=== PATIENT | male | born 1950 | race Caucasian/White ===

== ENCOUNTER 2018-01-22 06:13 | Emergency (ER) | payer OTHER, MEDICARE ==
[2018-01-22] MEDS ORDERED: ONDANSETRON 4 MG/2 ML VIAL IVP ONE ×2 (06:18→07:57)
[2018-01-22] MEDS ORDERED: NS 1,000 ML IV ONE (06:18)
--- NOTE | 2018-01-22 06:38 | EDPHY ---
H & P Smoking Status: Never smoked Time Seen by Provider: 01/22/18 06:18 HPI/ROS: CHIEF COMPLAINT: Nausea, vomiting, diarrhea HISTORY OF PRESENT ILLNESS: Patient states he had an upset stomach that started last night just before midnight. He was still up watching the [employer] football game on . He states that right around midnight he started vomiting and has vomited just about every hour since that time. He has also had some diarrhea. He states he still feels ill with nausea but denies any abdominal pain. He has had no known sick contacts. He did not take his medications last night secondary to nausea or this morning. Approximately 2 weeks ago he said he had upper respiratory infection with cough which is worse at night. It lasted about a week and has gotten better. He denies fever at any time. He did say that on Wednesday and he felt kind of "blah" but was better by Wednesday morning. Patient denies shortness of breath or chest pain. No dysuria. No blood in stool or vomit. REVIEW OF SYSTEMS: Constitutional: No fever, no chills. Eyes: No discharge. ENT: No sore throat. Cardiovascular: No chest pain, no palpitations. Respiratory: No cough, no shortness of breath. Gastrointestinal: No abdominal pain, nausea, vomiting, diarrhea as per HPI. Genitourinary: No dysuria. Musculoskeletal: No back pain. Skin: No rashes. Neurological: No headache. General Appearance: Alert, no distress. Eyes: Pupils equal and round no pallor or injection. ENT, Mouth: Mucous membranes moist. Respiratory: There are no retractions, lungs are clear to auscultation. Cardiovascular: Regular rate and rhythm. Tachycardic (117), hypertensive. Gastrointestinal: Abdomen is soft and nontender, no masses, bowel sounds normal. Neurological: Awake and alert, cranial nerves intact, no focal deficits. Skin: Warm and dry, no rashes. Musculoskeletal: Neck is supple nontender. Extremities are symmetrical, full range of motion, no edema. Psychiatric: Patient is oriented X 3, there is no agitation. Medical/surgical history: Type 2 diabetes, high cholesterol, hypertension, colon cancer with bowel resection 2016. Foot surgery. Social history: Nonsmoker. Had 4 beers night at a wedding but this is unusual for him. No drugs. Dr. Hernadez is PCP. (Rayna Guzman) Constitutional: Initial Vital Signs Temperature (C) 36.3 C 01/22/18 06:16 Heart Rate 117 H 01/22/18 06:16 Respiratory Rate 18 01/22/18 06:16 Blood Pressure 200/125 H 01/22/18 06:16 O2 Sat (%) 80 L 01/22/18 06:16 O2 Delivery Mode Nasal Cannula O2 (L/minute) 3 Allergies/Adverse Reactions: No Known Allergies Allergy (Verified 01/22/18 06:15) Home Medications: Medication Instructions Recorded RX: Ascorbic Acid [Vitamin C] 100 mg PO DAILY 12/03/14 RX: Cholecalciferol Vit D3 1,000 units PO DAILY 12/03/14 [Vitamin D3 (*)] RX: glipiZIDE [Glipizide] 5 mg PO BID 12/03/14 RX: Pioglitazone HCl [Actos 15mg 15 mg PO DAILY 01/30/16 (*)] RX: metFORMIN HCL [Metformin HCl 1,000 mg PO BID 02/10/16 ER] Prazosin HCl 01/22/18 RX: Aspirin 01/22/18 RX: Atorvastatin Calcium [Lipitor 01/22/18 10 mg (*)] RX: Metoprolol Succinate [Toprol 01/22/18 Xl] Medical Decision Making - Diagnostics Imaging Results: Imaging Impressions Chest X-Ray 01/22/18 06:46 Impression: Mild central bronchitis; otherwise negative chest.. ED Course/Re-evaluation: 6:45 a.m. reposition patient, nasal cannula applied, O2 sat to low mid 90s. ( Rayna Guzman) Differential Diagnosis: Differential diagnosis includes but is not limited to gastroenteritis, diabetic ketoacidosis, pneumonia. Initial evaluation performed by myself and patient discussed in detail with Dr. Griffin at the time of my departure from the emergency department. Plan is for hydration, antiemetics, diagnostics to include laboratory evaluation and chest x-ray. Will plan to give patient his normal medications as tolerated. Further evaluation and workup per Dr. Griffin ( Rayna Guzman) Other Provider: [address] Guzman pending CXR and laboratory results and improvements in symptoms. 0704 CBC noted for elevated wbc with left shift. Will check influenza. Influenza is negative. Patient's oxygen saturations dropped to 86% on room air. Chest x-ray shows no focal infiltrates per my interpretation. Troponin is 0.04. ECG shows a bifascicular block which is new compared to an ECG from 2016. 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 Plan will be to transfer the patient to [facility] for further evaluation. Patient's nausea is improved. He has not had any chest pain or shortness of breath during his course here. Patient his hypoxemic and tachycardic. D-dimer is negative here. Case discussed with Dr. Fritz, hospitalist at [facility]. She will accept the patient transfer. She has reviewed the patient records at [facility] in confirm that he has had a bifascicular block is air in the past. This reduces the likelihood of this being a cardiac cause for his hypoxia. Patient is feeling better but continues to have poor saturations on room air. Will transfer the patient over to the [facility] observation unit for further evaluation. (Braden Griffin) - Data Points Laboratory Results: 01/22/18 01/22/18 01/22/18 07:46 06:39 06:39 POC Sodium 141 mEq/L mEq/L (135-145) POC Potassium 4.3 mEq/L mEq/L (3.3-5.0) POC Chloride 108.0 mEq/L mEq/L (97-110) POC Total CO2 22 mEq/L mEq/L (22-31) POC BUN 17 mg/dL mg/dL (7-23) POC Creatinine 0.9 mg/dL mg/dL (0.7-1.3) POC Glucose 319 mg/dL H mg/dL (70-100) POC Calcium 9.3 mg/dL mg/dL (8.5-10.4) POC Total Bilirubin 0.9 mg/dL mg/dL (0.1-1.4) POC AST 33 IU/L IU/L (17-59) POC ALT 23 IU/L IU/L (21-72) POC Alk Phosphatase 77 IU/L IU/L (38-126) POC Troponin I 0.04 ng/mL ng/mL (0.00-0.08) POC Total Protein 8.0 g/dL g/dL (6.3-8.2) POC Albumin 4.2 g/dL g/dL (3.5-5.0) Lipase 66 IU/L IU/L (23-300) 01/22/18 06:25 POC Sodium POC Potassium POC Chloride POC Total CO2 POC BUN POC Creatinine POC Glucose 322 mg/dL H mg/dL (70-100) POC Calcium POC Total Bilirubin POC AST POC ALT POC Alk Phosphatase POC Troponin I POC Total Protein POC Albumin Lipase Medications Given: Discontinued Medications Sodium Chloride (Ns) 1,000 mls @ 0 mls/hr IV ONCE ONE; Wide Open PRN Reason: Protocol Stop: 01/22/18 06:19 Last Admin: 01/22/18 06:29 Dose: 1,000 mls Ondansetron HCl (Zofran) 4 mg IVP EDNOW ONE Stop: 01/22/18 06:19 Last Admin: 01/22/18 06:30 Dose: 4 mg Ondansetron HCl (Zofran) 4 mg IVP EDNOW ONE Stop: 01/22/18 07:58 Last Admin: 01/22/18 08:13 Dose: 4 mg Point of Care Test Results: CBC CBC Collection Date 01/22/18 CBC Collection Time 06:45 WBC 12.3 RBC 4.93 HGB 15.4 HCT 44.6 PLT 222 Neut # 11.6 Neut 94.4 LYMPH # 0.4 LYMPH 3.0 Other WBC # 0.3 Other WBC 2.6 MCV 90.5 Chemistry 01/22/18 01/22/18 01/22/18 07:46 06:39 06:25 POC Sodium 141 mEq/L mEq/L (135-145) POC Potassium 4.3 mEq/L mEq/L (3.3-5.0) POC Chloride 108.0 mEq/L mEq/L (97-110) POC Total CO2 22 mEq/L mEq/L (22-31) POC BUN 17 mg/dL mg/dL (7-23) POC Creatinine 0.9 mg/dL mg/dL (0.7-1.3) POC Glucose 319 mg/dL H mg/dL 322 mg/dL H mg/dL (70-100) (70-100) POC Calcium 9.3 mg/dL mg/dL (8.5-10.4) POC Total Bilirubin 0.9 mg/dL mg/dL (0.1-1.4) POC AST 33 IU/L IU/L (17-59) POC ALT 23 IU/L IU/L (21-72) POC Alk Phosphatase 77 IU/L IU/L (38-126) POC Troponin I 0.04 ng/mL ng/mL (0.00-0.08) POC Total Protein 8.0 g/dL g/dL (6.3-8.2) POC Albumin 4.2 g/dL g/dL (3.5-5.0) Influenza PCR Flu Nasal Swab Collection Date 01/22/18 Flu Nasal Swab Collection Time 07:00 Influenza A Result Not Detected Influenza B Result Not Detected Departure - Departure Disposition: [facility] Clinical Impression: Vomiting, Hypoxemia Condition: Fair Referrals: Clifton Hernadez MD [Primary Care Provider] - As per Instructions
--- NOTE | 2018-01-22 08:14 | CPEKG ---
Test Reason : OPEN Blood Pressure : / mmHG Vent. Rate : 108 BPM Atrial Rate : 108 BPM P-R Int : 148 ms QRS Dur : 160 ms QT Int : 404 ms P-R-T Axes : 046 125 -19 degrees QTc Int : 542 ms Sinus tachycardia RBBB and LPFB , new compared to 2016 Probable inferior infarct, age indeterminate Confirmed by Braden Griffin ([id number]) on 01/22/2018 8:13:59 AM Referred By: Confirmed By:Braden Griffin
[2018-01-22 09:45] VITALS: BP 153/91
== END 2018-01-22 09:18 | disposition short-term general hospital (02) ==
LOC: CED 06:13
DX: R11.2 Nausea with vomiting, unspecified (principal); R09.02 Hypoxemia; E86.9 Volume depletion, unspecified
CPT/HCPCS: 71046; 93005; 96361; 96374; 96376; 99285; J2405; 80053-PO; 84484-PO

== ENCOUNTER 2018-05-16 06:55 | Emergency (ER) | payer OTHER, MEDICARE ==
--- NOTE | 2018-05-16 07:22 | EDPHY ---
H & P Stated Complaint: PT. with cough since Wed.,chills and bodyaches since yesterday.,ST-Sat. Time Seen by Provider: 05/16/18 07:13 HPI/ROS: CHIEF COMPLAINT: Cough, fevers, body aches, sore throat, sinus congestion HISTORY OF PRESENT ILLNESS: Patient is a 68-year-old man with flu-like symptoms that began on Wednesday. His states that she checked his oxygen at home was 86%. Patient primarily complains with a cough and is here stating he only wants a prescription for cough medicine. states that he was hospitalized for 1 day in January with influenza and hypoxia. He went home with oxygen that he required for 2-3 days. No history of asthma or COPD. No smoking. Denies history of coronary artery disease. His cough is not been productive. Severity: Moderate Modifying factors: None REVIEW OF SYSTEMS: Constitutional: See HPI EENTM: See HPI Respiratory: denies: cough, shortness of breath Cardiac: denies: chest pain, irregular heart rate, lightheadedness, palpitations Gastrointestinal/Abdominal: denies: abdominal pain, diarrhea, nausea, vomiting, blood streaked stools Genitourinary: denies: dysuria, frequency, hematuria, pain Musculoskeletal: denies: joint pain, muscle pain Skin: denies: lesions, rash, jaundice, bruising Neurological: denies: headache, numbness, paresthesia, tingling, dizziness, weakness Hematologic/Lymphatic: denies: blood clots, easy bleeding, easy bruising Immunologic/allergic: denies: HIV/AIDS, transplant 10 systems reviewed and negative except as noted EXAM: GENERAL: Well-appearing, well-nourished and in no acute distress. HEAD: Atraumatic, normocephalic. EYES: Pupils equal round and reactive to light, extraocular movements intact, sclera anicteric, conjunctiva are normal. ENT: TMs normal, nares math congestion, oropharynx clear without exudates. Moist mucous membranes. NECK: Normal range of motion, supple without lymphadenopathy or JVD. LUNGS: Breath sounds clear to auscultation bilaterally and equal. No wheezes rales or rhonchi. HEART: Regular rate and rhythm without murmurs, rubs or gallops. ABDOMEN: Soft, nontender, normoactive bowel sounds. No guarding, no rebound. No masses appreciated. BACK: No CVA tenderness, no spinal tenderness, step-offs or deformities EXTREMITIES: Normal range of motion, no pitting or edema. No clubbing or cyanosis. NEUROLOGICAL: Cranial nerves II through XII grossly intact. Normal speech, normal gait. 5/5 strength, normal movement in all extremities, normal sensation , normal reflexes PSYCH: Normal mood, normal affect. SKIN: Warm, dry, normal turgor, no visible rashes or lesions. Source: Patient, Family - Personal History Current Tetanus Diphtheria and Acellular Pertussis (TDAP): Unsure Tetanus Vaccine Date: WITHIN 10 YRS - Medical/Surgical History Hx Asthma: No Hx Chronic Respiratory Disease: No Hx Diabetes: Yes Hx Cardiac Disease: No Hx Renal Disease: No Hx Cirrhosis: No Hx Alcoholism: No Hx HIV/AIDS: No Hx Splenectomy or Spleen Trauma: No Other PMH: High cholesterol, DMII, Colon CA, HTN (prehypertension), bowel resection 2015, left foot sx (1987) - Family History Significant Family History: No pertinent family hx - Social History Smoking Status: Never smoked Alcohol Use: None Constitutional: Initial Vital Signs Temperature (C) 36.8 C 05/16/18 07:03 Heart Rate 98 05/16/18 07:03 Respiratory Rate 20 05/16/18 07:03 Blood Pressure 146/87 H 05/16/18 07:03 O2 Sat (%) 89 L 05/16/18 07:03 O2 Delivery Mode Nasal Cannula O2 (L/minute) 2 Allergies/Adverse Reactions: No Known Allergies Allergy (Verified 05/16/18 07:01) Home Medications: Medication Instructions Recorded Ascorbic Acid [Vitamin C] 100 mg PO DAILY 12/03/14 Cholecalciferol Vit D3 [Vitamin D3 1,000 units PO DAILY 12/03/14 (*)] glipiZIDE [Glipizide] 5 mg PO BID 12/03/14 Pioglitazone HCl [Actos 15mg (*)] 15 mg PO DAILY 01/30/16 metFORMIN HCL [Metformin ER 1,000 mg PO BID 02/10/16 Osmotic] Atorvastatin Calcium [Lipitor 10 01/22/18 mg (*)] Metoprolol Succinate [Toprol Xl] 01/22/18 Prazosin HCl 01/22/18 Albuterol [Proventil Inhaler] 1 - 2 puffs IH Q4H #1 mdi 05/16/18 Aspirin 81mg (*) 05/16/18 Promethazine HCl/Codeine 5 ml PO Q4-6PRN PRN #90 ml 05/16/18 [Prometh-Codein 6.25-10 mg/5 ml] guaiFENesin [Mucinex] 1,200 mg PO BID #10 tab.er.12h 05/16/18 Medical Decision Making - Diagnostics Imaging Results: Imaging Impressions Chest X-Ray 05/16/18 07:23 Impression: 1. Chronic mild cardiomegaly without decompensation. 2. Chronic versus recurrent airways disease, without pneumonia. 3. Suspect chronic interstitial lung disease. 4. New vague right upper lobe nodularity. Consider noncontrast chest CT or follow-up chest x-ray after treatment for airways disease (if clinically appropriate), for further evaluation. Results discussed with Dr. Crawford at 8:05 AM Imaging: Discussed imaging studies w/ call center consultant Radiologist ED Course/Re-evaluation: Patient is slightly hypoxic air at around 88% on room air. Will treat with oxygen and initiate septic workup. Patient's symptoms are consistent with influenza. He did already have the flu once this year. 8:35 a.m. the patient's x-rays consistent with for bronchitis similar to January when he was hospitalized with influenza. We did discuss the nodule in follow-up for this. In January he stayed in the hospital for 1 day and was discharged on oxygen which she used for couple of days. His other lab work is reassuring. Patient still saturating in the high 80s after DuoNeb. I recommended admission but he is very hesitant and would prefer to go home with cough syrup and oxygen. Have placed a call to his primary doctor Clifton Hernadez to see if he can have early follow-up and if we can arrange home oxygen for today. 8:45 a.m. I spoke with Dr. Hernadez, the patient's primary. He agrees with the plan to send the patient home on oxygen and will follow up with him early tomorrow morning. Home oxygen has been arranged. He will take the 1st take with him now and then they will deliver more to his house. Discussed indications for returning including worsening condition or dyspnea. They do have a pulse oximeter at home. Differential Diagnosis: Partial list of the Differential diagnosis considered include but were not limited to; bronchitis, pneumonia, sepsis, influenza and although unlikely based on the history and physical exam, I also considered acute coronary disease , CHF, PE. - Data Points Laboratory Results: 05/16/18 05/16/18 07:51 07:48 POC Sodium 141 mEq/L mEq/L (135-145) POC Potassium 3.9 mEq/L mEq/L (3.3-5.0) POC Chloride 105.0 mEq/L mEq/L (97-110) POC Total CO2 26 mEq/L mEq/L (22-31) POC BUN 13 mg/dL mg/dL (7-23) POC Creatinine 1.0 mg/dL mg/dL (0.7-1.3) POC Glucose 179 mg/dL H mg/dL (70-100) POC Lactic Acid Dariel 1.6 mmol/L mmol/L (0.7-2.1) POC Calcium 9.2 mg/dL mg/dL (8.5-10.4) POC Total Bilirubin 0.8 mg/dL mg/dL (0.1-1.4) POC AST 31 IU/L IU/L (17-59) POC ALT 20 IU/L L IU/L (21-72) POC Alk Phosphatase 58 IU/L IU/L (38-126) POC Total Protein 8.0 g/dL g/dL (6.3-8.2) POC Albumin 3.9 g/dL g/dL (3.5-5.0) Medications Given: Discontinued Medications Acetaminophen/Codeine Phosphate (Tylenol #3) 2 tab PO EDNOW ONE Stop: 05/16/18 08:35 Last Admin: 05/16/18 09:00 Dose: 2 tab Albuterol/Ipratropium (Duoneb) 3 ml IH EDNOW ONE Stop: 05/16/18 07:34 Last Admin: 05/16/18 08:09 Dose: 3 ml Guaifenesin (Mucinex) 1,200 mg PO BID JOSE DAVID Stop: 11/12/18 08:59 Last Admin: 05/16/18 09:02 Dose: Not Given Ibuprofen (Motrin) 600 mg PO EDNOW ONE Stop: 05/16/18 08:13 Last Admin: 05/16/18 08:21 Dose: 600 mg Point of Care Test Results: CBC CBC Collection Date 02/25/19 CBC Collection Time 07:40 WBC 6.13 RBC 4.80 HGB 14.1 HCT 43.2 PLT 204 Neut # 4.21 Neut 68.6 LYMPH # 0.93 LYMPH 15.2 MCV 90.0 Chemistry 05/16/18 07:48 POC Sodium 141 mEq/L mEq/L (135-145) POC Potassium 3.9 mEq/L mEq/L (3.3-5.0) POC Chloride 105.0 mEq/L mEq/L (97-110) POC Total CO2 26 mEq/L mEq/L (22-31) POC BUN 13 mg/dL mg/dL (7-23) POC Creatinine 1.0 mg/dL mg/dL (0.7-1.3) POC Glucose 179 mg/dL H mg/dL (70-100) POC Calcium 9.2 mg/dL mg/dL (8.5-10.4) POC Total Bilirubin 0.8 mg/dL mg/dL (0.1-1.4) POC AST 31 IU/L IU/L (17-59) POC ALT 20 IU/L L IU/L (21-72) POC Alk Phosphatase 58 IU/L IU/L (38-126) POC Total Protein 8.0 g/dL g/dL (6.3-8.2) POC Albumin 3.9 g/dL g/dL (3.5-5.0) Blood Gas/Lactic Acid-Venous 05/16/18 07:51 POC Lactic Acid Dariel 1.6 mmol/L mmol/L (0.7-2.1) Influenza PCR Flu Nasal Swab Collection Date 05/16/18 Flu Nasal Swab Collection Time 07:17 Influenza A Result Not Detected Influenza B Result Not Detected Departure - Departure Clinical Impression: Bronchitis, Hypoxia Condition: Fair Instructions: Guaifenesin (By mouth), Promethazine/Codeine (By mouth), Acute Bronchitis (ED), Hypoxia (ED) Referrals: Clifton Hernadez MD [Primary Care Provider] - As per Instructions Stand Alone Forms: Parent/Guardian Work Excuse Prescriptions: Albuterol [Proventil Inhaler] 1 - 2 puffs IH Q4H #1 mdi guaiFENesin [Mucinex] 1,200 mg PO BID #10 tab.er.12h Promethazine HCl/Codeine [Prometh-Codein 6.25-10 mg/5 ml] 5 ml PO Q4-6PRN PRN # 90 ml PRN Reason: Cough, Moderate
[2018-05-16] MEDS ORDERED: IPRATROPIUM/ALBUTEROL 3 ML DEYVIAL IH ONE (07:33)
[2018-05-16] MEDS ORDERED: IBUPROFEN 200 MG TAB PO ONE ×2 (08:12→08:17)
[2018-05-16] MEDS ORDERED: ACETAMINOPHEN/CODEINE 300/30MG TAB PO ONE (08:34)
--- NOTE | 2018-05-16 08:40 | PDHOMEO2F ---
Home Oxygen Face to Face Home Orders: I certify that a physician or a nurse practitioner or physician's medicine assistant has had a afli-nr-rqnh encounter with this patient on the date of this order due to the diagnosis listed, which relates to the primary reason the patient requires home oxygen. Alternative treatments have been tried, or considered, and deemed ineffective. It is anticipated that supplemental oxygen will result in improvement with treatment. Home oxygen qualifying diagnosis: Hypoxia Home oxygen secondary diagnosis: Bronchitis SpO2 on room air (%): 88% Frequency of home oxygen needed: continuous Home oxygen liters per minute: 2 Home oxygen delivery device: nasal cannula Concentrator: No E-tanks for mobility and back up: Yes If ordering portable O2, is the patient mobile in the home?: No I certify that, based on these findings, the home oxygen is medically necessary for this patient for the following length of time. Length of time home oxygen needed: 1 week
[2018-05-16] MEDS ORDERED: guaiFENesin 600 MG TAB.ER PO SCH (09:00)
[2018-05-16 09:34] VITALS: BP 109/69
--- NOTE | 2018-05-16 13:56 | PDHOMEO2F ---
Home Oxygen Face to Face Home Orders: I certify that a physician or a nurse practitioner or physician's library assistant has had a saqk-nr-rdfw encounter with this patient on the date of this order due to the diagnosis listed, which relates to the primary reason the patient requires home oxygen. Alternative treatments have been tried, or considered, and deemed ineffective. It is anticipated that supplemental oxygen will result in improvement with treatment. Home oxygen qualifying diagnosis: Hypoxia Home oxygen secondary diagnosis: Bronchitis SpO2 on room air (%): 88 Frequency of home oxygen needed: continuous Home oxygen liters per minute: 2 Home oxygen delivery device: nasal cannula Concentrator: No E-tanks for mobility and back up: Yes If ordering portable O2, is the patient mobile in the home?: Yes I certify that, based on these findings, the home oxygen is medically necessary for this patient for the following length of time. Length of time home oxygen needed: 1 month
== END 2018-05-17 09:13 | disposition home or self-care (01) ==
LOC: CED 06:55
DX: J40 Bronchitis, not specified as acute or chronic (principal); R09.02 Hypoxemia; I10 Essential (primary) hypertension; E78.00 Pure hypercholesterolemia, unspecified; E11.9 Type 2 diabetes mellitus without complications; Z79.4 Long term (current) use of insulin
CPT/HCPCS: 71046-PO; 80053-ER; 83605-ER; 99284-ER

== ENCOUNTER → 2018-06-08 | Outpatient (CLI) | payer OTHER, MEDICARE | LOC: CIMAGING 10:40 | PROVIDERS: ATTEND Family Medicine | DX: R91.8 Other nonspecific abnormal finding of lung field (principal) | CPT/HCPCS: 71250-PO ==

== ENCOUNTER → 2018-06-15 | Outpatient (CLI) | payer OTHER, MEDICARE | LOC: CIMAGING 12:28 | PROVIDERS: ATTEND Family Medicine | DX: E04.1 Nontoxic single thyroid nodule (principal) | CPT/HCPCS: 76536-PO ==

== ENCOUNTER → 2018-06-21 | Outpatient (CLI) | payer OTHER, MEDICARE ==
[~2018-06-21] MED LIST: LIDOCAINE 1% 300 MG/30 ML SDV ONE
== END ==
LOC: FIMAGING 07:51
PROVIDERS: ATTEND Family Medicine
PROC: 0GBG3ZX Excision of Left Thyroid Gland Lobe, Percutaneous Approach, Diagnostic (ICD-10-PCS; principal; 2018-06-21)
DX: E04.1 Nontoxic single thyroid nodule (principal)